=== PATIENT | male | born 1990 | race Two or more races ===

== ENCOUNTER 2017-12-16 17:44 | Emergency (ER) | payer SELFPAY ==
[~2017-12-16] VITALS: Ht 172.7 cm; Wt 63.5 kg
--- NOTE | 2017-12-16 17:48 | ED.ADGEN ---
Past History Past Medical History: Seizure Adult General Chief Complaint Chief Complaint ".. I guess I passed out.. last thing I remember .. I was stacking wood... and started to get dizzy.. but I did not stop.. and I guessed .. I passed out... Its happened before.. but usually I sit down..or rest before I get too dizzy... " "He was stacking wood.. and the client came..and asked if he was okay.... I went to check on him... and he was on the ground... and seemed to be having jerking.. or seizure like activity.. I turned him on his side... and then he woke up... he seemed back to normal by time he got to the hospital.. 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 Patient has had previous episodes of apnea significant be if he gets dehydrated or does not sit down. Patient denies any medical issues. Patient did advise he did not take in much fluids today. Pt. has history just prior of being dizzy. Patient does not remember his heart rate prior to the episode of syncope. He was in the process of of actively bending over and stacking wood. Patient works with a [employer]. Patient does have a history of poor sleep insomnia of both onset and sustained. Mother states he does snore, and frequently has unrestful sleep. No history of any trauma. No history current drug use . States he is on probation. . No hx of prior seizure disorder. Does smoke. No recent travel or specific ill contacts. Mother states he's always been healthy. Review of Systems Review of Systems No complaints other than syncope episode Constitutional: Denies fever or chills [] Eyes: Denies change in visual acuity, redness, or eye pain [] HENT: Denies nasal congestion or sore throat [] Respiratory: Denies cough or shortness of breath [] Cardiovascular: No additional information not addressed in HPI [] GI: Denies abdominal pain, nausea, vomiting, bloody stools or diarrhea [] : Denies dysuria or hematuria [] Musculoskeletal: Denies back pain or joint pain [] Integument: Denies rash or skin lesions [] Neurologic: Denies headache, focal weakness or sensory changes [] Endocrine: Denies polyuria or polydipsia [] All other systems were reviewed and found to be within normal limits, except as documented in this note. Family History Family History Noncontributory Current Medications Current Medications Current Medications Medications (Trade) Dose Ordered Sig/Reinaldo Start Time Stop Time Status Last Admin Dose Admin Lorazepam (Ativan) 1 mg 1X ONCE 12/16/17 18:45 12/16/17 18:46 DC 12/16/17 18:38 1 MG Multivitamins/ Minerals 10 ml/ Folic Acid 1 mg/ Thiamine HCl 100 mg/Lactated Ringer's 1,011.2 ml @ 1,000 mls/ hr 1X ONCE 12/16/17 19:00 12/16/17 20:00 DC 12/16/17 19:12 1,000 MLS/HR Allergies Allergies Allergies Coded Allergies Type Severity Reaction Last Updated Verified No Known Drug Allergies 12/16/17 No Physical Exam Physical Exam Constitutional: Well developed, well nourished, no acute distress, non-toxic appearance. [] HENT: Normocephalic, atraumatic, bilateral external ears normal, oropharynx dry , no oral exudates, nose normal. []No bite matute of tongue. Eyes: PERRLA, EOMI, conjunctiva normal, no discharge. [] No field defects. Fundus benign. Neck: Normal range of motion, no tenderness, supple, no stridor. [] Cardiovascular:Heart rate regular rhythm, no murmur []monitor shows a normal sinus rhythm. Lungs & Thorax: Bilateral breath sounds equal at apexes and a few scattered wheezes auscultation [] Abdomen: Bowel sounds normal, soft, no tenderness, no masses, no pulsatile masses. [] No incontinence of urine or stool. Skin: Warm, dry, no erythema, no rash. [] Back: No tenderness, no CVA tenderness. [] Extremities: No tenderness, no cyanosis, no clubbing, ROM intact, no edema. [] Neurologic: Alert and oriented X 3, normal motor function, normal sensory function, no focal deficits noted. []DTRs +2 patella and brachial. Doubler Helper equal. No drift. Patient is ambulatory without problems Psychologic: Affect normal, judgement normal, mood normal. [] Current Patient Data Vital Signs Vital Signs Date Time Temp Pulse Resp B/P (MAP) Pulse Ox O2 Delivery O2 Flow Rate FiO2 12/16/17 20:19 81 20 130/78 (95) 100 Room Air 12/16/17 18:21 97.9 Lab Results Laboratory Tests Test 12/16/17 18:15 12/16/17 18:52 White Blood Count 9.1 x10^3/uL (4.0-11.0) Red Blood Count 4.79 x10^6/uL (4.30-5.70) Hemoglobin 15.0 g/dL (13.0-17.5) Hematocrit 44.3 % (39.0-53.0) Mean Corpuscular Volume 93 fL (79-100) Mean Corpuscular Hemoglobin 31 pg (25-35) Mean Corpuscular Hemoglobin Concent 34 g/dL (31-37) Red Cell Distribution Width 13.3 % (11.5-14.5) Platelet Count 202 x10^3/uL (140-400) Neutrophils (%) (Auto) 64 % (31-73) Lymphocytes (%) (Auto) 25 % (24-48) Monocytes (%) (Auto) 7 % (0-9) Eosinophils (%) (Auto) 3 % (0-3) Basophils (%) (Auto) 1 % (0-3) Neutrophils # (Auto) 5.9 x10^3uL (1.8-7.7) Lymphocytes # (Auto) 2.3 x10^3/uL (1.0-4.8) Monocytes # (Auto) 0.6 x10^3/uL (0.0-1.1) Eosinophils # (Auto) 0.3 x10^3/uL (0.0-0.7) Basophils # (Auto) 0.1 x10^3/uL (0.0-0.2) Erythrocyte Sedimentation Rate 0 (0-15) Sodium Level 142 mmol/L (136-145) Potassium Level 3.7 mmol/L (3.5-5.1) Chloride Level 104 mmol/L (98-107) Carbon Dioxide Level 25 mmol/L (21-32) Anion Gap 13 (6-14) Blood Urea Nitrogen 15 mg/dL (8-26) Creatinine 1.3 mg/dL (0.7-1.3) Estimated GFR (Cockcroft-Gault) 67.3 Glucose Level 73 mg/dL (70-99) Calcium Level 8.9 mg/dL (8.5-10.1) Magnesium Level 2.2 mg/dL (1.8-2.4) Creatine Kinase 164 U/L (39-308) Troponin I Quantitative < 0.017 ng/mL (0-0.055) QD-Xuh-[id number]-Type Natriuretic Peptide 62 pg/mL (0-124) Prothrombin Time 11.3 SEC (9.4-11.4) Prothrombin Time INR 1.1 (0.9-1.1) PTT 27 SEC (23-33) Urine Collection Type Unknown Urine Color Yellow Urine Clarity Clear Urine pH 7.0 Urine Specific [place] 1.025 Urine Protein Neg (NEG-TRACE) Urine Glucose (UA) Neg mg/dL (NEG) Urine Ketones (Stick) Neg mg/dL (NEG) Urine Blood Neg (NEG) Urine Nitrite Neg (NEG) Urine Bilirubin Neg (NEG) Urine Urobilinogen Dipstick 0.2 mg/dL (0.2 mg/dL) Urine Leukocyte Esterase Neg (NEG) Urine RBC 0 /HPF (0-2) Urine WBC Occ /HPF (0-4) Urine Squamous Epithelial Cells None /LPF Urine Bacteria 0 /HPF (0-FEW) Urine Mucus Slight /LPF Urine Opiates Screen Neg (NEG) Urine Methadone Screen Neg (NEG) Urine Barbiturates Neg (NEG) Urine Phencyclidine Screen Neg (NEG) Urine Amphetamine/Methamphetamine Neg (NEG) Urine Benzodiazepines Screen Pos (NEG) Urine Cocaine Screen Neg (NEG) Urine Cannabinoids Screen Neg (NEG) Urine Ethyl Alcohol Neg (NEG) EKG EKG My interpretation of EKG shows a sinus rhythm at 84 bpm. There is some artifact. But no findings acute STEMI of contralateral changes[] Radiology/Procedures Radiology/Procedures My interpretation chest x-ray shows no acute cardiopulmonary findings. My interpretation of CT of head shows no shift, mass, edema, bleed, or fracture. Neck lace. [] Course & Med Decision Making Course & Med Decision Making Pertinent Labs and Imaging studies reviewed. (See chart for details) Discussed with patient and mother patient to push fluids. Patient to follow-up primary care. Patient not to drive or to participate in any potentially hazardous activity until resolution of the symptoms. No Return to any hazard activity until released by primary care. Consider further workup with tilt table or further cardiology evaluation. Consider neurology evaluation. History points to possible dehydration and a vasal vagal episode.s Possible hx of Insomnia and Sleep Apnea. Must follow up. Return if any concerns. [] Final Impression Final Impression 1. Syncope-suspect vasovagal 2. Seizure like activity- 3. Dehydration[]-( unable to produce urine until hydrated with 1000 cc IV fluids here and 1000 cc by ambulance.) Dragon Disclaimer Dragon Disclaimer This electronic medical record was generated, in whole or in part, using a voice recognition dictation system. RONALD GEE MD Dec 16, 2017 17:48
--- NOTE | 2017-12-16 18:12 | RAD ---
Examination: CHEST PA LATERAL History: Seizure-new onset, confusion, headache Comparison/Correlation: None Findings: PA and lateral views of chest were obtained. Heart size and pulmonary vasculature are normal. No infiltrate or pleural effusion. Bony structures are unremarkable. No pneumothorax. Impression: No active disease. Electronically signed by: Jamel Schroeder MD (12/16/2017 6:09 PM) [facility]
--- NOTE | 2017-12-16 18:13 | RAD ---
Examination: CT HEAD WO CONTRAST History: Seizure- new onset, confusion Comparison/Correlation: None Findings: Axial images of the head were obtained without contrast. The topogram is unremarkable. Ventricles are normal size. No intracranial hemorrhage, midline shift, or mass effect. Globes are partially visualized and unremarkable. Bony structures are unremarkable. Impression: No intracranial hemorrhage. Electronically signed by: Jamel Schroeder MD (12/16/2017 6:10 PM) [facility]
--- NOTE | 2017-12-16 18:15 | EKG ---
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
[2017-12-16 18:37] LABS: BASO # 0.1 x10^3/uL (0.0-0.2); BASO % 1 % (0-3); EOS # 0.3 x10^3/uL (0.0-0.7); EOS % 3 % (0-3); HEMATOCRIT 44.3 % (39.0-53.0); LYMPH # 2.3 x10^3/uL (1.0-4.8); LYMPH % 25 % (24-48); MEAN CORPUSCULAR HEMOGLOBIN 31 pg (25-35); MEAN CORPUSCULAR HGB CONC 34 g/dL (31-37); MEAN CORPUSCULAR VOLUME 93 fL (79-100); MONO # 0.6 x10^3/uL (0.0-1.1); MONO % 7 % (0-9); NEUT # 5.9 x10^3uL (1.8-7.7); NEUT % 64 % (31-73); PLATELET COUNT 202 x10^3/uL (140-400); RED BLOOD COUNT 4.79 x10^6/uL (4.30-5.70); RED CELL DISTRIBUTION WIDTH 13.3 % (11.5-14.5); WHITE BLOOD COUNT 9.1 x10^3/uL (4.0-11.0)
[2017-12-16] MEDS ORDERED: LORazepam 1 MG TABLET PO ONE (18:45)
[2017-12-16 18:56] LABS: CALCIUM 8.9 mg/dL (8.5-10.1); CREATININE 1.3 mg/dL (0.7-1.3); GFR 67.3; MAGNESIUM 2.2 mg/dL (1.8-2.4); POTASSIUM 3.7 mmol/L (3.5-5.1)
[2017-12-16] MEDS ORDERED: MVI, ADULT NO.4 WITH VIT K 10 ML, FOLIC ACID SYRINGE for ER 1 MG, THIAMINE INJ 100 MG i... IV ONE ×4 (19:00)
[2017-12-16 19:11] LABS: BARBITURATES NEG (NEG); BENZODIAZEPINES POS (NEG); CANNABINOIDS NEG (NEG); COCAINE NEG (NEG); METHADONE NEG (NEG); OPIATES NEG (NEG); PHENCYCLIDINE NEG (NEG)
[2017-12-16 19:12] LABS: BACTERIA,URINE 0 /HPF (0-FEW); BILIRUBIN,URINE NEG (NEG); CLARITY,URINE CLEAR; COLOR,URINE YELLOW; GLUCOSE,URINE NEG (NEG); NITRITE,URINE NEG (NEG); RBC,URINE 0 /HPF (0-2); UROBILINOGEN,URINE 0.2 mg/dL (0.2 mg/dL); WBC,URINE OCC /HPF (0-4)
[2017-12-16 19:13] LABS: AMPHETAMINE/METHAMPHETAMINE NEG (NEG)
[2017-12-16 19:44] LABS: SEDIMENTATION RATE 0 (0-15)
[2017-12-16 20:19] VITALS: BP 130/78
== END 2017-12-16 20:22 | disposition home or self-care (01) ==
LOC: ER 17:44
DX: R55 Syncope and collapse (principal); E86.0 Dehydration; R56.9 Unspecified convulsions
CPT/HCPCS: 36415; 70450; 71046; 80048; 80307; 81001; 82550; 83735; 83880; 84484; 85025; 85610; 85651; 85730; 93005; 96365; 99285; J7120; G0479